=== PATIENT | male | born 1995 | race Caucasian/White ===

== ENCOUNTER 2021-01-18 07:25 | Emergency (ER) | payer BC ==
[~2021-01-18] VITALS: Ht 182.9 cm; Wt 71.0 kg
[2021-01-18 07:48] VITALS: BP 119/64
[2021-01-18] MEDS ORDERED: DAYQUIL (07:52)
[2021-01-18] MEDS ORDERED: AZIT250T12 MT (09:21)
== END 2021-01-18 09:46 | disposition home or self-care (01) ==
LOC: ER 07:25
DX: R05.9 Cough, unspecified (principal)
CPT/HCPCS: 71045; 99283